=== PATIENT | female | born 1985 | race Caucasian/White ===

== ENCOUNTER 2016-09-28 16:02 | Inpatient (IN) | payer BC ==
[~2016-09-28] VITALS: Ht 175.3 cm; Wt 77.3 kg
[~2016-09-28 16:02] MED LIST: MOTRIN 600600 MG/TAB PO; PERCOCET 325 MG1 TA2 PO; PRENATAL MVI PO
[2016-10-26] VITALS (21 sets, daily range): BP systolic 97–122; BP diastolic 55–80; PULSE 62–103; TEMP 97.7–98.4
[2016-10-26] MEDS ORDERED: ZOLOFT 50MG50 MG PO (08:03)
[2016-10-26 08:26] LABS: BASO % 0.5 % (0.0-2.0); EOS # 0.1 (0.0-0.7); EOS % 1.3 % (0-4.0); GRAN # 5.8 (1.4-6.5); GRAN % 68.2 % (42.2-75.2); HEMATOCRIT 34.8 % (37.0-47.0); HEMOGLOBIN 11.6 g/dl (12.5-16.0); LYMPH # 1.8 (1.2-3.4); LYMPH % 21.1 % (20.0-51.0); MEAN CELL VOLUME 87 fl (80.0-100.0); MEAN CORPUSCULAR HEMOGLOBIN 29 pg (27.0-31.0); MEAN CORPUSCULAR HGB CONC 33 g/dl (33.0-37.0); MEAN PLATELET VOLUME 10.6 fl (7.4-10.4); MONO # 0.6 (0.1-0.6); MONO % 7.2 % (1.7-9.3); PLATELET COUNT 153 K/mm3 (130-400); RED BLOOD COUNT 3.99 M/mm3 (4.10-5.30); WHITE BLOOD COUNT 8.5 K/mm3 (4.8-10.8)
[2016-10-26] MEDS ORDERED: IBU600 MG PO (11:44)
[2016-10-26] MEDS ORDERED: PERCOCET 325 MG1 TA2 PO (11:45)
[2016-10-27 08:40] VITALS: BP 110/61; PULSE 77; TEMP 97.8
== END 2016-10-27 16:15 | disposition home or self-care (01) | DRG 775 ==
LOC: LDR 10-26 07:55 → OB 10-26 07:55 → EDSTATUS 11-04 07:53 → LDRO 11-04 16:02
PROVIDERS: Obstetrics & Gynecology
PROC: 10E0XZZ Delivery of Products of Conception, External Approach (ICD-10-PCS; principal; 2016-10-26)
DX: O80 Encounter for full-term uncomplicated delivery (principal); Z3A.38 38 weeks gestation of pregnancy; Z37.0 Single live birth
CPT/HCPCS: J2590; J2795; J7120

== ENCOUNTER 2019-10-29 15:33 | Inpatient (IN) | payer BC ==
[~2019-10-29] VITALS: Wt 80.9 kg
[2019-10-29] VITALS (26 sets, daily range): BP systolic 94–143; BP diastolic 54–78; PULSE 66–102; TEMP 97.8–98.2
[~2019-10-29 15:33] MED LIST changes: +IBU600 MG PO; +ZOLOFT 50MG50 MG PO
--- NOTE | 2019-10-29 15:35 | NUR ---
Pt here with c/o increased pelvic pressure. Pt to room LDR 4. 36.4 weeks gestation and G5L3. Pt states "I over did it this weekend I feel like I am more dilated then 4." Pt also states feeling leaking at times this weekend too. Pt to [facility], explained. SVE: amniotrace negative. SVE: 5+/80/-3 and bag of javed palpated. Pt states she is only feeling contractions every 20-30 minutes. Assessment complete. GBS +. 1551:Dr Skinner called and notified. Orders to recheck in 1 hour and if no cervical change may DC home.
--- NOTE | 2019-10-29 17:10 | NUR ---
SVE: /-2 with bulgy bag of javed and bloody show noted. 1417:Dr Fuentes called, see physician notification. Pt requesting epidural, Esteban YADAV notified. IV started to left Forearm x 1 attempt. Blood drawn then LR bolus started. Pen G started per GBS + protocol. 1750:Esteban YADAV here and at bedside. Pt respositioned to sitting up. Epidural placed, test dose at 1803. Pt tolerated well. See anesthesia notes.
[2019-10-29 17:52] LABS: BASO % 0.5 % (0.0-2.0); EOS # 0.1 (0.0-0.7); EOS % 0.8 % (0-4.0); GRAN # 5.5 (1.4-6.5); GRAN % 69.2 % (42.2-75.2); HEMATOCRIT 33.5 % (37.0-47.0); HEMOGLOBIN 10.8 g/dl (12.5-16.0); LYMPH # 1.7 (1.2-3.4); LYMPH % 21.8 % (20.0-51.0); MEAN CELL VOLUME 87 fl (80.0-100.0); MEAN CORPUSCULAR HEMOGLOBIN 28 pg (27.0-31.0); MEAN CORPUSCULAR HGB CONC 32 g/dl (33.0-37.0); MEAN PLATELET VOLUME 11.2 fl (7.4-10.4); MONO # 0.5 (0.1-0.6); MONO % 6.7 % (1.7-9.3); PLATELET COUNT 168 K/mm3 (130-400); RED BLOOD COUNT 3.87 M/mm3 (4.10-5.30); REDCELL DISTRIBUTION WIDTH-CV 13.7 % (11.5-14.5)
--- NOTE | 2019-10-29 22:00 | NUR ---
RN at bedside discussing plan of care and starting pitocin with patient. Pt wanting to wait another hour before starting pitocin. Category 1 FHR tracing. Contractions every 2-3 minutes.
[2019-10-30] VITALS (38 sets, daily range): BP systolic 88–134; BP diastolic 51–86; PULSE 55–96; TEMP 97.8–98.1
--- NOTE | 2019-10-30 05:10 | NUR ---
Pt called out stating she would like to be checked. SVE /+1. Dr. Fuentes called for delivery.
--- NOTE | 2019-10-30 05:39 | NUR ---
0530 - Room set up for delivery. Paige catheter removed, 300 mL out. Pt positioned into footplates, educated on pushing techniques. Dr. Fuentes gowned and gloved at perineum. 0531 - Initial push. Pushing well with contractions. Nursery nurse Ingrid Gaming at bedside. 0539 - Spontaneous vaginal delivery of viable girl. Infant placed to mothers abdomen. Cord clamped x [address] Fuentes and cut by FOB. Care of infant assumed to NICO Gramajo. Cord blood obtained. 0543 - Spontaneous delivery of intact placenta. Pitocin started at 333 mL/hr per protocol. Fundal massage by Dr. Fuentes, firm and at umbilicus. Perineum intact per Dr. Fuentes. Pericare done. New chux and ice pack beneath patient. recovery started. See physician delivery note.
[2019-10-30] MEDS ORDERED: MOTRIN 800800 MG/TAB PO (08:53)
--- NOTE | 2019-10-30 09:15 | NUR ---
Patient ambulatory to bathroom with RN assist x2. Voids without difficulty. Pericare performed, underwear, peripad, and ice pack in place. Gown changed. Patient transferred to Room 208 via wheelchair. Oriented to room and plan of care. Denies pain. Call light within reach.
[2019-10-31 02:00] VITALS: BP 109/63; PULSE 65; TEMP 97.9
[2019-10-31 08:40] VITALS: BP 99/57; PULSE 57; TEMP 97.5
--- NOTE | 2019-10-31 10:01 | NUR ---
Initial visit attempt; Family resting, Game Operator left card of congratulations for the of their daughter and information regarding the availability of spiritual care at [facility].
[2019-10-31 16:20] VITALS: BP 114/66; PULSE 63; TEMP 98.6
[2019-10-31 22:25] VITALS: BP 116/61; PULSE 61; TEMP 97.6
[2019-11-01 07:25] VITALS: BP 106/64; PULSE 53; TEMP 97.7
== END 2019-11-01 14:15 | disposition home or self-care (01) | DRG 807 ==
LOC: LDRO 15:33 → LDR 15:35 → LDRO 17:14 → LDR 17:15 → OB 10-30 09:15
PROVIDERS: Obstetrics & Gynecology; ADMIT Obstetrics & Gynecology
PROC: 10E0XZZ Delivery of Products of Conception, External Approach (ICD-10-PCS; principal; 2019-10-29)
PROC: 10907ZC Drainage of Amniotic Fluid, Therapeutic from Products of Conception, Via Natural or Artificial Opening (ICD-10-PCS; 2019-10-29)
DX: O60.14X0 Preterm labor third trimester with preterm delivery third trimester, not applicable or unspecified (principal); Z37.0 Single live birth; O99.824 Streptococcus B carrier state complicating childbirth; O99.344 Other mental disorders complicating childbirth; F32.9 Major depressive disorder, single episode, unspecified; F41.9 Anxiety disorder, unspecified; Z3A.36 36 weeks gestation of pregnancy
CPT/HCPCS: J2405; J2540; J2590; J7120